=== PATIENT | female | born 1980 | race Caucasian/White ===

== ENCOUNTER → 2018-06-04 08:27 | Outpatient (CLI) | payer BC, SELFPAY ==
[2018-06-04 09:59] LABS: Absolute Lymphocyte Count 2.23 X10^3/ul (0.83-4.51); Absolute Neutrophil Count 3.5 X10^3/uL (2.0-7.7); Basophil# 0.05 X10^3/uL; Basophil% 0.8 % (0-1); Eosinophil# 0.12 X10^3/uL; Eosinophils% 1.9 % (0-5); Hematocrit 42.6 % (37-47); Hemoglobin 13.9 g/dl (12.0-15.0); Lymphocyte # 2.23 X10^3/ul (4.0); Lymphocyte % 35.3 % (19-41); Mean Corp Hgb Conc 32.6 g/gl (32-36); Mean Corpuscular Hgb 30.5 pg (27.0-32.0); Mean Corpuscular Volume 93.6 fL (81-99); Mean Platelet Vol. 11.2 fl (6.2-12.0); Monocyte# 0.41 X10^3/uL; Monocyte% 6.5 % (0-10); Neutrophil # 3.49 X10^3/uL (2.7-7.7); Neutrophil % 55.3 % (47-70); Platelet Count 306 K/mm3 (150-450); RBC Distribution Width SD 44.5 fl (35.1-43.9); Red Blood Count 4.55 M/mm3 (4.2-5.4); White Blood Count 6.3 K/mm3 (4.4-11.0)
[2018-06-04 10:01] LABS: POSITIVE COUNT NO; POSITIVE DIFFERENTIAL NO; POSITIVE MORPHOLOGY NO
[2018-06-04 10:25] LABS: ALB/GLOB Ratio 1.1 RATIO (0.9-2.4); AST(SGOT) 12 U/L (15-37); Alanine Aminotransfer ALT/SGPT 20 U/L (13-56); Albumin, Serum 3.7 g/dL (3.2-5.0); Alkaline Phosphatase 78 U/L (45-117); Anion Gap 7 (5-15); BUN 10 mg/dL (7-18); BUN/Creat Ratio 11.5 RATIO (10-20); Calcium,Total 9.3 mg/dL (8.5-10.1); Chloride 107 mmol/L (98-107); Cholesterol 136 mg/dL (200); Creatinine, Serum 0.87 mg/dL (0.55-1.02); EST Glomerular Filtration Rate 77 mL/min (>60); Est Glom Filt Rate - Afr Amer 93 mL/min (>60); Globulin 3.3 g/dL (2.2-4.2); Glucose 81 mg/dL (74-106); High Density Lipoprotein 64 mg/dL; Potassium 4.3 mmol/L (3.5-5.1); Sodium Level 141 mmol/L (136-145); Thyroid Stim Hormone (TSH) 1.32 uIU/mL (0.358-3.74); Triglycerides 63 mg/dL; Very Low Density Lipoprotein 13 mg/dL (5-40)
== END ==
PROVIDERS: Family Provider Family Medicine; PCP Family Medicine; Referring Provider Family Medicine; Visit Provider Family Medicine
DX: Z00.00 Encounter for general adult medical examination without abnormal findings (principal); Z31.69 Encounter for other general counseling and advice on procreation
CPT/HCPCS: 36415; 80053; 80061; 84443; 85025

== ENCOUNTER → 2018-06-12 14:38 | Outpatient (CLI) | payer BC, SELFPAY ==
[2018-06-11 15:33] VITALS: BMI 26.1
--- NOTE | 2018-06-12 14:44 | ECHOD_ITS ---
Reason For Study: Palpitations Procedure This was a 2D Doppler, Color Flow transthoracic echocardiogram. Exam performed in department. Left Ventricle Normal LV size. Left ventricular systolic function is normal. The estimated ejection fraction is 60 %. Normal diastology for age. No regional wall motion abnormalities noted. Right Ventricle Normal RV size. Normal systolic function. Atria Normal left atrium. Normal right atrium. Mitral Valve Mild mitral valve prolapse. Trivial mitral valve insufficiency. Tricuspid Valve Normal tricuspid valve. Mild tricuspid valve insufficiency. Pulmonary artery systolic pressure is 28 mmHg. Aortic Valve Normal aortic valve. Trisinus/trileaflet aortic valve. Pulmonic Valve Normal pulmonic valve. Great Vessels Normal aortic root. The pulmonary artery is normal size. Normal inferior vena cava. Pericardium/Pleural No pericardial effusion. MMode/2D Measurements & Calculations LVIDd: 4.4 cm IVSd: 0.86 cm Ao root diam: 2.5 cm LVIDs: 2.8 cm LVPWd: 0.76 cm RVDd: 3.8 cm FS: 37.8 % LAV(MOD-bp): 23.6 ml LA A4 area: 9.8 cm2 LA dimension(2D): 3.1 cm LAV(MOD-bp) Indexed: 12.1 ml/m2 LAV(MOD-sp2): 25.6 ml LAV(MOD-sp4): 19.2 ml RA A4 area: 6.4 cm2 Doppler Measurements & Calculations MV E max aubrey: 81.5 cm/sec Lat Peak E' Aubrey: 18.5 cm/sec Med Peak E' Aubrey: 14.2 cm/sec MV A max aubrey: 60.0 cm/sec E/E' lat: 4.4 E/E' med: 5.7 MV E/A: 1.4 Ao V2 max: 126.8 cm/sec LV V1 max: 116.9 cm/sec PA V2 max: 115.4 cm/sec Ao max P.4 mmHg LV V1 max P.5 mmHg Ao V2 mean: 90.5 cm/sec Ao mean P.6 mmHg Ao V2 VTI: 25.5 cm TR max aubrey: 246.3 cm/sec TR max P.3 mmHg Interpretation Summary Normal LV size. Left ventricular systolic function is normal. The estimated ejection fraction is 60 %. Mild mitral valve prolapse. Trivial mitral valve insufficiency. Ordering Physician: Grant Oconnor Referring Physician: Reji Rizo Performed By: Vreo Koenig RDCS, RVT
== END ==
PROVIDERS: Family Provider Family Medicine; PCP Family Medicine; Referring Provider Internal Medicine Cardiovascular Disease; Visit Provider Internal Medicine Cardiovascular Disease
DX: I34.1 Nonrheumatic mitral (valve) prolapse (principal); I49.3 Ventricular premature depolarization; R00.2 Palpitations
CPT/HCPCS: 93306

== ENCOUNTER → 2018-06-16 09:19 | Outpatient (CLI) | payer BC, SELFPAY ==
[2018-06-11 15:33] VITALS: BMI 26.1
--- NOTE | 2018-06-16 09:21 | STE_ITS ---
Reason For Study: PALPITATIONS Stress Results Protocol: Eduardo Protocol Maximum Predicted HR: 183 bpm Target HR: 156 bpm % Maximum Predicted HR: 109 % DurationHeart Rate Stage (mm:ss) (bpm) BP BASELINE 84 120/70 STAGE 1 3:00 126 126/72 STAGE 2 3:00 160 138/74 STAGE 3 3:00 200 134/60 RECOVERY 103 120/74 Stress Duration: 9:00 mm:ss Maximum Stress HR: 200 bpm Baseline Echocardiogram Findings Stress Echo Wall motion Data Resting WM Intermediate WM Stress WM Resting Wall Motion Wall Motion Stress No regional wall motion No regional wall motion abnormalities noted. abnormalities noted. Ejection Fraction 60 %. Ejection Fraction 70 %. Stress Results Normal blood pressure response to exercise. Exercise was stopped due to fatigue. Interpretation Summary Exercise stress echo. Indication preoperative clearance. Resting EKG demonstrates normal sinus rhythm with a rate of 82 bpm normal intervals are noted resting blood pressures 120/70 mmHg. The patient exercised according to regular Eduardo protocol for total duration of 9 minutes the maximum heart rate attained was 218 bpm which was 119% of maximum predicted heart rate the patient completed stage III of the Eduardo protocol. Occasional premature ventricular complexes were noted. At rest there were no ST or T wave changes no suggest ischemia peak exercise upsloping ST changes only were noted with no meet the criteria for ischemia. No clinical angina was noted. The resting blood pressure was 120/70 mmHg with a peak blood pressure 138/74 mmHg. The maximum workload attained was 10.1 metabolic equivalents. Rate pressure product was 27,200. Stress echocardiographic images. The resting echocardiogram demonstrated an ejection fraction of 60%. The patient at peak exercise demonstrated thickening of all harvey and reduction of left ventricular cavity size peaking at 70%. No wall motion of normalities were noted to suggest ischemia. Conclusion: Exercise stress echocardiogram with normal EKG and normal echocardiographic images with no evidence of ischemia. Ordering Physician: Grant Oconnor MD Referring Physician: Grant Oconnor Performed By: Ro Holland RDCS
== END ==
PROVIDERS: Family Provider Family Medicine; PCP Family Medicine; Referring Provider Internal Medicine Cardiovascular Disease; Visit Provider Internal Medicine Cardiovascular Disease
DX: I49.3 Ventricular premature depolarization (principal); I34.1 Nonrheumatic mitral (valve) prolapse; R00.2 Palpitations
CPT/HCPCS: 93017; 93350

== ENCOUNTER → 2018-06-26 07:22 | Outpatient (CLI) | payer BC, SELFPAY ==
[2018-06-11 15:33] VITALS: BMI 26.1
[2018-06-26 07:57] LABS: hCG Titer Quant., Serum 43 mIU/mL (<9 non-preg)
== END ==
PROVIDERS: Family Provider Family Medicine; PCP Family Medicine; Referring Provider Obstetrics & Gynecology Reproductive Endocrinology; Visit Provider Obstetrics & Gynecology Reproductive Endocrinology
DX: Z32.00 Encounter for pregnancy test, result unknown (principal)
CPT/HCPCS: 36415; 84702

== ENCOUNTER → 2018-06-29 | Outpatient (CLI) | payer BC, SELFPAY ==
[2018-06-11 15:33] VITALS: BMI 26.1
[2018-06-29 08:19] LABS: hCG Titer Quant., Serum 138 mIU/mL (<9 non-preg)
== END | disposition home or self-care (01) ==
LOC: LAB 07:33
PROVIDERS: Family Provider Family Medicine; PCP Family Medicine; Referring Provider Obstetrics & Gynecology Reproductive Endocrinology; Visit Provider Obstetrics & Gynecology Reproductive Endocrinology
DX: Z32.01 Encounter for pregnancy test, result positive (principal)
CPT/HCPCS: 36415; 84702

== ENCOUNTER 2019-02-12 09:35 | Inpatient (IN) | payer BC, SELFPAY ==
[2018-06-11 15:33] VITALS: BMI 26.1
[2019-02-05 14:03] VITALS: BMI 30.2
--- NOTE | 2019-02-09 17:16 | PCM.HP.BLA ---
History and Physical Date of Admission: 02/12/19 HPI: The patient is a 38 year old female presenting for pre-operative visit. She is scheduled for?, for?37 weeks, h/o vertical uterine incision for triplets on?02/12/19. ??Procedure discussed along with risks, benefits and complications. ?Other alternatives discussed for management. Consent form signed??Yes.? PAST MEDICAL HISTORY PAST MEDICAL HISTORY Diagnosis Date ? Endometriosis, site unspecified ? ? Endometriosis ? History of pre-eclampsia in prior , currently ? ? Infertility, female ? ? Kidney stones ? ? Mitral valve disorders(424.0) ? ? Mitral valve disorder/prolapse ? ? PAST SURGICAL HISTORY PAST SURGICAL HISTORY Procedure Laterality Date ? D&C ? ? ? L'SCOPE DX W/WO BRUSHINGS/WASHINGS ? ? ? Laparoscopy x2, endometriosis ? ? CURRENT MEDICATIONS Current Outpatient Medications Medication Sig Dispense Refill ? no.44-iron,car-FA-dha (PRENATE MINI) 29 mg iron-1 mg -350 mg cap Take by mouth. ? ? ? aspirin, enteric coated (ASPIRIN, ENTERIC COATED) 81 mg EC tablet Take 81 mg by mouth once daily. ? ? ? No current facility-administered medications for this visit.? ? ALLERGIES:?Morphine; Percocet [Oxycodone-Acetaminophen] ? PERSONAL HISTORY:? SOCIAL HISTORY Social History ? Tobacco Use ? Smoking status: Never Smoker ? Smokeless tobacco: Never Used Substance Use Topics ? Alcohol use: No ? Drug use: No ? FAMILY HISTORY:? FAMILY HISTORY FAMILY HISTORY Problem Relation Age of Onset ? No Known Problems Mother ? ? Heart Father ? ? Hypertension Father ? ? No Known Problems Brother ? ? No Known Problems Brother ? ? Cancer Maternal Grandmother ? ? Diabetes Maternal Grandmother ? ? Heart Maternal Grandmother ? ? Leukemia Maternal Grandfather ? ? Heart Attack Paternal Grandfather ? ? Heart disease Daughter ?Mild pulmonary stenosisstenosis ? REVIEW OF SYMPTOMS: GENERAL: denies fevers or chills ENDOCRINOLOGY: has not been on steroids Cardiology : denies palpitations or chest pain Respiratory: denies SOB or cough Hematology: denies history of prolonged bleeding or easy bruising or VTE Allergy: Denies history of personal or family history of allergy to anesthesia ? ? PHYSICAL EXAMINATION: ? VITALS:?Blood pressure 106/60, weight 205 lb (93 kg), last menstrual period 05/25/2018. ? GENERAL:??The patient is well nourished, well hydrated in no acute distress. ?, The patient is oriented to time, place, and person. NECK:?Supple. No lynphadenopathy, normal thyroid, no thyromegaly. LUNGS:?Clear to auscultation bilaterally. no wheezes, rhonchi or rales HEART:?Regular rate and rhythm, Normal heart sounds and No murmurs or gallops abd- soft,nontender, gravid, approp. for gestational age ? ? IMPRESSION:?37 weeks on 02/12/19, previous vertical uterine incision ? PLAN:???The risks/benefits/alternatives and personal involved for the planned?c/s?were reviewed with the patient. Her questions were answered to her satisfaction and she desires to proceed. ?Consent was signed. ?I reviewed with her postop instructions and expectations. ? ? I have reviewed and updated past medical and surgical history, medications and allergies? this history and physical was completed in my office on 02/09/2018.
[2019-02-12] VITALS (18 sets, daily range): BP systolic 94–119; BP diastolic 60–77; PULSE 71–91; RESP 16–18; TEMP 36.2–36.7; O2SAT 97–100; BMI 30.4
[2019-02-12] MEDS: Lactated Ringers 1,000 ML 999 ML IV (10:25)
[2019-02-12 10:27] LABS: Absolute Lymphocyte Count 1.73 X10^3/uL (0.83-4.51); Absolute Neutrophil Count 7.2 X10^3/uL (2.0-7.7); Basophil# 0.03 X10^3/uL; Basophil% 0.3 % (0-1); Eosinophil# 0.05 X10^3/uL; Eosinophils% 0.5 % (0-5); Hematocrit 32.9 % (37-47); Hemoglobin 10.8 g/dL (12.0-15.0); Lymphocyte # 1.73 X10^3/ul (4.0); Lymphocyte % 17.8 % (19-41); Mean Corp Hgb Conc 32.8 g/dL (32-36); Mean Corpuscular Hgb 31.6 pg (27.0-32.0); Mean Corpuscular Volume 96.2 fL (81-99); Mean Platelet Vol. 11.1 fl (6.2-12.0); Monocyte# 0.64 X10^3/uL; Monocyte% 6.6 % (0-10); NRBC Flagged by Analyzer 0.2 % (0-5); Neutrophil # 7.17 X10^3/uL (2.7-7.7); Platelet Count 215 K/mm3 (150-450); RBC Distribution Width SD 51.4 fl (35.1-43.9); Red Blood Count 3.42 M/mm3 (4.2-5.4); White Blood Count 9.7 K/mm3 (4.4-11.0)
[2019-02-12] MEDS: Lactated Ringers 1,000 ML 150 ML IV (11:26)
[2019-02-12] MEDS: Sodium Citrate/Citric Acid 30 ML UDC PO (11:50)
[2019-02-12] MEDS: Cefazolin 2 GM in 0.9% Normal Saline 100 ML IV (12:09)
--- NOTE | 2019-02-12 12:58 | OP.PCM_ITS ---
Delivery Classification: Scheduled Final GABINO: 03/05/19 - set by invitro embryo transfer date Gestational age: 37 Weeks and 0 Days data conversion developer: Vicky Rodney Type of Anesthesia:: Spinal Special Medications: none Implants Used: none Date of Procedure: 02/12/19 Pre-Operative Diagnosis: 37 weeks , advanced maternal age, previous vertical uterine incision Post-Operative Diagnosis: same+ adhesions of ovaries to sidewall and tubes, adhesions of tubes to ovaries and uterus, recto-sigmoid to uterus Indications for : Repeat Elective Description of Procedure: The patient was taken to the operating room. She was prepped and draped in the dorsal supine position with a leftward tilt. A Pfannenstiel skin incision was made approximately 2 cm above the symphysis pubis and carried through to underlying layer fascia with the scalpel. The fascia was incised incised in the midline and extended laterally with the Torres scissors. The fascia was dissected off the rectus muscles with blunt and sharp dissection. The rectus muscles were in the midline and the peritoneum was entered bluntly. The peritoneal incision was stretched and the bladder blade was placed. Because of some visions of the bladder to the lower uterine segment, the Metzenbaum scissors were used to create a bladder flap. Once the bladder was out of the way, the uterine incision was made. The uterine incision was made in a low transverse fashion with the scalpel and extended superiorly and inferiorly with blunt dissection. The amniotic membranes were ruptured bluntly and clear amniotic fluid returned. The 's head was brought to the incision in the flexed position and delivered without difficulty. The remainder of the was delivered with gentle traction and fundal pressure in the standard fashion. The mouth and nares were bulb suctioned. The cord was clamped and cut as the infant was stimulated. Cord clamping was delayed. The was handed off to the waiting nursing staff. The placenta was delivered with fundal massage and gentle traction in the standard fashion. The uterus was exteriorized and cleared of all clots and debris. The cervix was dilated with a ring forcep. The uterine incision was closed with #1 Vicryl in a running locked fashion. Stasis was noted. Some of the adhesions of the rectosigmoid to the midportion of the posterior uterus were taken down with blunt and sharp dissection. Bovie cauterization was done to control the bleeding over the uterus. Some Ford was then placed in this area. Because of the extensive nature of the adhesions, and there were no blind loops, the decision was made not to take any more of the adhesions down as they would likely reform. The tubes appeared somewhat clubbed. She does have a history of endometriosis and the adhesions found were consistent with this history. The incision was re-examined and was found to be hemostatic. The uterus was placed back into the peritoneal cavity and hemostasis was again confirmed. The rectus muscles were examined and any bleeding was Bovie cauterized. The parietal peritoneum and rectus muscles were closed en bloc with an 0 Vicryl running suture. The surgical teams outer gloves were then changed. The rectus fascia was examined and any bleeding was Bovie cauterized and the rectus fascia was closed with 0 PDS suture in a running standard fashion. The subcutaneous tissue was examining and any bleeding was Bovie cauterized. The subcutaneous tissue was reapproximated with 3-0 Vicryl suture. The skin was closed in a subcuticular fashion by the [employer] with me present in the labor and delivery suite. I performed the remainder of the procedure with assistance. All sponge, lap, and needle counts were correct. The patient was taken to her room for recovery in a stable condition. Amniotic Membrane Rupture Type: Artificial Amniotic Fluid Description: Clear Placenta Disposition: [facility] Specimen(s) sent to pathology: none Drain: Gaitan to straight drain Cord Entanglement: None Cord Vessel Description: 3 Vessels Esitmated Blood Loss (ml): 800 Infant Gender: Female Delayed cord clamping: Yes Antibiotic Given: Ancef 2 grams IV x1 Complications: None - Admit VTE Documentation VTE Present on Admission: No VTE Mechan Device Prophylaxis: SCD's VTE Pharm Prophylaxis ordered?: Yes
[2019-02-12] MEDS: Oxytocin 30 units/NS 500 ml 30 UNITS/500 ML IV.SOLN 167 UNITS IV (13:10)
[2019-02-12] MEDS: Lactated Ringers 1,000 ML 100 ML IV (16:26)
[2019-02-12] MEDS: 0.9% Saline Lock 10 ML Syringe IV (17:42)
[2019-02-12] MEDS: Ketorolac 30 MG/ML Syringe IV (17:42)
[2019-02-12] MEDS: Ondansetron 4 MG/2 ML Vial IV (17:42)
[2019-02-12] MEDS: Senna/Docusate Sodium 1 Tablet PO (21:53)
[2019-02-13] VITALS (10 sets, daily range): BP systolic 95–122; BP diastolic 62–77; PULSE 69–93; RESP 16–18; TEMP 36.6–37.2; O2SAT 98–100
[2019-02-13 04:56] LABS: Hemoglobin 9.3 g/dL (12.0-15.0); Mean Corp Hgb Conc 33.2 g/dL (32-36); Mean Corpuscular Hgb 31.6 pg (27.0-32.0); Mean Corpuscular Volume 95.2 fL (81-99); Mean Platelet Vol. 10.9 fl (6.2-12.0); Platelet Count 174 K/mm3 (150-450); RBC Distribution Width CV 14.7 % (11.6-14.6); RBC Distribution Width SD 50.4 fl (35.1-43.9); Red Blood Count 2.94 M/mm3 (4.2-5.4); White Blood Count 12.3 K/mm3 (4.4-11.0)
[2019-02-13] MEDS: 0.9% Saline Lock 10 ML Syringe IV ×4 (06:59→23:37)
[2019-02-13] MEDS: Enoxaparin 40 MG/0.4 ML Syringe SC (06:59)
[2019-02-13] MEDS: Ketorolac 30 MG/ML Syringe IV ×5 (06:59→23:37)
[2019-02-13] MEDS: Senna/Docusate Sodium 1 Tablet PO ×2 (12:10→22:37)
--- NOTE | 2019-02-13 12:34 | PCM.PN.OB ---
Subjective: Doing well per patient and nursing staff. Ambulating and taking PO without difficulty. Voiding and passing flatus. Pain controlled. without difficulty. Denies any increased vaginal bleeding or clots. Denies chest pain, shortness of breath, dizziness, or leg pain. Planning D/C home tomorrow. - Physical Exam Vitals/I&O's: Vital Signs Temp Pulse Resp BP Pulse Ox 98.5 F 69 18 95/74 100 02/13/19 12:16 02/13/19 12:16 02/13/19 12:16 02/13/19 12:16 02/13/19 12:16 Oxygen Delivery Method Room Air Weight: 206 lb Body Mass Index (BMI) 30.4 Intake and Output for Last 24 Hours 02/11/19 02/12/19 02/13/19 23:59 23:59 23:59 Intake Total 2372.5 / 2472.5 2600 / 2600 Output Total 200 / 1000 3250 / 3250 Balance 2172.5 / 1472.5 -650 / -650 General: Alert, Oriented x3, Cooperative HEENT: Atraumatic, Normocephalic Neck: Trachea Midline Lungs: Clear to auscultation, Normal air movement, No rhonchi, No wheeze Cardiovascular: Regular rate, Regular Rhythm, No murmurs Abdomen: Bowel Sounds Present - Fundus firm 3 below U, Soft Extremities: No edema - Abdi's negative bilaterally Psych/Mental Status: Normal Affect, Appropriate Laboratory Results 02/13/19 04:47: WBC 12.3 H, RBC 2.94 L, Hgb 9.3 L, Hct 28.0 L, MCV 95.2, MCH 31.6, MCHC 33.2, RDW Std Deviation 50.4 H, RDW Coeff of Laura 14.7 H, Plt Count 174, MPV 10.9 Current Medications Acetaminophen (Tylenol) 1,000 mg PO Q8H PRN PRN Reason: Pain Score 1-3/10 Bisacodyl (Dulcolax) 10 mg RECTAL UD PRN PRN Reason: If no BM Docusate Sodium (Colace) 100 mg PO BID [facility] Last Admin: 02/13/19 10:21 Dose: Not Given Documented by: Enoxaparin Sodium (Lovenox) 40 mg SC DAILY@0600 [facility] Last Admin: 02/13/19 06:59 Dose: 40 mg Documented by: Hydrocortisone (Hytone) 1 applic TOPICAL TID PRN PRN; Protocol PRN Reason: Discomfort Lactated Ringer's () 1,000 mls @ 100 mls/hr IV .Q10H [facility] Last Admin: 02/13/19 10:21 Dose: Not Given Documented by: Naloxone HCl 4 mg/ Dextrose 504 mls @ 0 mls/hr IV .Q0M PRN; Protocol PRN Reason: Respiratory depression Ketorolac Tromethamine (Toradol) 30 mg IV Q6 [facility] Stop: 02/14/19 12:01 Last Admin: 02/13/19 12:10 Dose: 30 mg Documented by: Methylergonovine Maleate (Methergine) 0.2 mg IM X1 PRN PRN Reason: Uterine Atony Naloxone HCl (Narcan) 0.02 mg IV Q1M PRN PRN Reason: RR <10 and pt unresponsive Naproxen (Naprosyn) 250 - 500 mg PO Q8H PRN PRN PRN Reason: Pain Score 1-3/10 Ondansetron HCl (Zofran) 4 mg IV Q4H PRN PRN PRN Reason: Nausea Last Admin: 02/12/19 17:42 Dose: 4 mg Documented by: Oxycodone HCl (Oxyir) 5 - 10 mg PO Q4H PRN PRN PRN Reason: Pain Score 4-10/10 Prochlorperazine Edisylate (Compazine Iv) 10 mg IV Q6H PRN PRN PRN Reason: NAUSEA Senna/Docusate Sodium (Senokot-S, Jasmin-Colace) 1 tablet PO BID [facility] Last Admin: 02/13/19 12:10 Dose: 1 tablet Documented by: Simethicone (Mylicon) 80 mg PO PCHS PRN PRN Reason: Indigestion/stomach pain Sodium Chloride () 5 - 15 ml IV UD PRN PRN Reason: SALINE FLUSH Last Admin: 02/13/19 12:10 Dose: 10 ml Documented by: Medical Necessity - Tobacco Use Smoking Status: Never smoker Assessment/Plan All Active Problems (Last Reviewed 02/03/19 @ 11:13 by Carey Gaitan) Palpitations (Acute) A:POD #1 Repeat Section P: 1) Routine care 2) Pain management 3) support 4) Planning D/C home tomorrow
[2019-02-13] MEDS: Acetaminophen 500 MG Tablet 1000 MG PO (19:56)
[2019-02-14 01:30] VITALS: BP 130/78; PULSE 73; RESP 16; TEMP 36.6
[2019-02-14] MEDS: Ketorolac 30 MG/ML Syringe IV ×2 (06:09→11:56)
[2019-02-14] MEDS: 0.9% Saline Lock 10 ML Syringe IV ×2 (06:10→11:57)
[2019-02-14] MEDS: Enoxaparin 40 MG/0.4 ML Syringe SC (06:10)
[2019-02-14 08:00] VITALS: BP 113/71; PULSE 75; RESP 16; TEMP 36.4
[2019-02-14] MEDS: Acetaminophen 500 MG Tablet 1000 MG PO (08:52)
--- NOTE | 2019-02-14 11:40 | PN.OBGYN_ITS ---
Subjective: Doing well per patient and nursing staff. Ambulating and taking PO without difficulty. Voiding and having bowel movement. without concerns. Denies shortness of breath, chest pain, increased vaginal bleeding, leg pain , or other concerns. Planning D/C home today. - Physical Exam Vitals/I&O's: Vital Signs Temp Pulse Resp BP Pulse Ox 97.6 F L 75 16 113/71 100 02/14/19 08:00 02/14/19 08:00 02/14/19 08:00 02/14/19 08:00 02/13/19 16:00 Oxygen Delivery Method Room Air Weight: 206 lb Body Mass Index (BMI) 30.4 Intake and Output for Last 24 Hours 02/12/19 02/13/19 02/14/19 23:59 23:59 23:59 Intake Total 2372.5 / 2472.5 2600 / 2600 Output Total 200 / 1000 3850 / 3850 Balance 2172.5 / 1472.5 -1250 / -1250 General: Alert, Oriented x3, Cooperative HEENT: Atraumatic, Normocephalic Neck: Trachea Midline Lungs: Clear to auscultation, Normal air movement, No rhonchi, No wheeze Cardiovascular: Regular rate, Regular Rhythm, No murmurs Abdomen: Bowel Sounds Present, - - Fundus firm 2 below U. Dressing dry and intact Extremities: Edema - edema +1 bilateral lower extremities. Abdi's negative bilaterally Psych/Mental Status: Normal Affect, Appropriate Current Medications Acetaminophen (Tylenol) 1,000 mg PO Q8H PRN PRN Reason: Pain Score 1-3/10 Last Admin: 02/14/19 08:52 Dose: 1,000 mg Documented by: Bisacodyl (Dulcolax) 10 mg RECTAL UD PRN PRN Reason: If no BM Docusate Sodium (Colace) 100 mg PO BID [facility] Last Admin: 02/13/19 22:33 Dose: Not Given Documented by: Enoxaparin Sodium (Lovenox) 40 mg SC DAILY@0600 [facility] Last Admin: 02/14/19 06:10 Dose: 40 mg Documented by: Hydrocortisone (Hytone) 1 applic TOPICAL TID PRN PRN; Protocol PRN Reason: Discomfort Naloxone HCl 4 mg/ Dextrose 504 mls @ 0 mls/hr IV .Q0M PRN; Protocol PRN Reason: Respiratory depression Ketorolac Tromethamine (Toradol) 30 mg IV Q6 [facility] Stop: 02/14/19 12:01 Last Admin: 02/14/19 06:09 Dose: 30 mg Documented by: Methylergonovine Maleate (Methergine) 0.2 mg IM X1 PRN PRN Reason: Uterine Atony Naloxone HCl (Narcan) 0.02 mg IV Q1M PRN PRN Reason: RR <10 and pt unresponsive Naproxen (Naprosyn) 250 - 500 mg PO Q8H PRN PRN PRN Reason: Pain Score 1-3/10 Ondansetron HCl (Zofran) 4 mg IV Q4H PRN PRN PRN Reason: Nausea Last Admin: 02/12/19 17:42 Dose: 4 mg Documented by: Oxycodone HCl (Oxyir) 5 - 10 mg PO Q4H PRN PRN PRN Reason: Pain Score 4-10/10 Prochlorperazine Edisylate (Compazine Iv) 10 mg IV Q6H PRN PRN PRN Reason: NAUSEA Senna/Docusate Sodium (Senokot-S, Jasmin-Colace) 1 tablet PO BID [facility] Last Admin: 02/13/19 22:37 Dose: 1 tablet Documented by: Simethicone (Mylicon) 80 mg PO PCHS PRN PRN Reason: Indigestion/stomach pain Sodium Chloride () 5 - 15 ml IV UD PRN PRN Reason: SALINE FLUSH Last Admin: 02/14/19 06:10 Dose: 5 ml Documented by: Medical Necessity - Tobacco Use Smoking Status: Never smoker Assessment/Plan All Active Problems (Last Reviewed 02/03/19 @ 11:13 by Carey Gaitan) Palpitations (Acute) A:POD #2 Repeat Section P: 1) Routine and postop instructions reviewed 2) Discharge home today 3) Follow up for incision check in one week and PP visit in 6 weeks
--- NOTE | 2019-02-14 11:59 | DS.PCM_ITS ---
Discharge Date and Diagnosis Date of Admission: 02/12/19 Date of Discharge: 02/14/19 - Primary Discharge Diagnosis Repeat Section - Secondary Discharge Diagnosis Chronic Problems (Last Reviewed 02/03/19 @ 11:13 by Carey Gaitan) Mitral valve prolapse (Chronic) seen on ekg (echo?) 10 years ago per pt. Hospital Course and Treatment Summary of Care Provided: The patient is a 38 year old F [for repeat section on 02/12/19. Hospital course uncomplicated. Discharge home on post operative day #2. ] - Physical Exam Vitals/I&O's: Vital Signs Temp Pulse Resp BP Pulse Ox 97.6 F L 75 16 113/71 100 02/14/19 08:00 02/14/19 08:00 02/14/19 08:00 02/14/19 08:00 02/13/19 16:00 Oxygen Delivery Method Room Air Weight: 206 lb Body Mass Index (BMI) 30.4 Intake and Output for Last 24 Hours 02/12/19 02/13/19 02/14/19 23:59 23:59 23:59 Intake Total 2372.5 / 2472.5 2600 / 2600 Output Total 200 / 1000 3850 / 3850 Balance 2172.5 / 1472.5 -1250 / -1250 Current Medications Acetaminophen (Tylenol) 1,000 mg PO Q8H PRN PRN Reason: Pain Score 1-3/10 Last Admin: 02/14/19 08:52 Dose: 1,000 mg Documented by: Bisacodyl (Dulcolax) 10 mg RECTAL UD PRN PRN Reason: If no BM Docusate Sodium (Colace) 100 mg PO BID [facility] Last Admin: 02/14/19 11:57 Dose: Not Given Documented by: Enoxaparin Sodium (Lovenox) 40 mg SC DAILY@0600 [facility] Last Admin: 02/14/19 06:10 Dose: 40 mg Documented by: Hydrocortisone (Hytone) 1 applic TOPICAL TID PRN PRN; Protocol PRN Reason: Discomfort Naloxone HCl 4 mg/ Dextrose 504 mls @ 0 mls/hr IV .Q0M PRN; Protocol PRN Reason: Respiratory depression Ketorolac Tromethamine (Toradol) 30 mg IV Q6 [facility] Stop: 02/14/19 12:01 Last Admin: 02/14/19 11:56 Dose: 30 mg Documented by: Methylergonovine Maleate (Methergine) 0.2 mg IM X1 PRN PRN Reason: Uterine Atony Naloxone HCl (Narcan) 0.02 mg IV Q1M PRN PRN Reason: RR <10 and pt unresponsive Naproxen (Naprosyn) 250 - 500 mg PO Q8H PRN PRN PRN Reason: Pain Score 1-3/10 Ondansetron HCl (Zofran) 4 mg IV Q4H PRN PRN PRN Reason: Nausea Last Admin: 02/12/19 17:42 Dose: 4 mg Documented by: Oxycodone HCl (Oxyir) 5 - 10 mg PO Q4H PRN PRN PRN Reason: Pain Score 4-10/10 Prochlorperazine Edisylate (Compazine Iv) 10 mg IV Q6H PRN PRN PRN Reason: NAUSEA Senna/Docusate Sodium (Senokot-S, Jasmin-Colace) 1 tablet PO BID [facility] Last Admin: 02/14/19 11:57 Dose: Not Given Documented by: Simethicone (Mylicon) 80 mg PO PCHS PRN PRN Reason: Indigestion/stomach pain Sodium Chloride () 5 - 15 ml IV UD PRN PRN Reason: SALINE FLUSH Last Admin: 02/14/19 11:57 Dose: 10 ml Documented by: Home Medications: Medications to take at Discharge vitamin,calcium,nwedczgq-blhq-gwnwh acid tablet 1 tab PO DAILY 06/10/18 aspirin 81 mg tablet,delayed release 81 mg PO DAILY 06/11/18 Primary Care Physician: Reji Rizo MD [Primary Care Provider] - Medical Necessity - Tobacco Use Smoking Status: Never smoker Meaningful Use Info Meaningful Use Diagnoses (Choose all that apply): None applicable
--- NOTE | 2019-02-14 12:28 | DCINST_ITS ---
Discharge Diet: No Restrictions Discharge Activity: Return to Normal Activity, May not drive while taking narcotic pain medications., May Shower May resume sexual activity in: 4-6 weeks Weight Bearing Status: Full weight bearing Lifting Restrictions: 20 pounds Additional Activity Instructions:: Nothing in the vagina for 4-6 weeks. You may return to work/school in 6 weeks. Call your doctor if your incision/area has: Continuous Slow Oozing, Sudden Increased Bleeding, Increased Pain/ Swelling, Increased Redness, Foul Smelling Discharge Call your doctor if you observe: Fever of 101 or Higher, Inability to urinate, Inability to have a bowel movement, Using more than one pad per hour, Shortness of breath, Chest pain, Increased palpitations (irregular heartbeat), Calf discomfort Suture Line Care: Avoid Pulling/Pushing, Avoid Pinching/Bending Cleanse incision/area with: Keep Dressing Clean & Dry Additional Instructions: If you experience any of the following, contact your healthcare provider. * Bleeding that soaks a pad every hour for 2 hours * Fever 100.4 or higher * Unrelieved incision or abdominal pain * Swelling, redness, discharge or bleeding from your incision or episiotomy site * Your incision begins to separate * Problems urinating (including inability to urinate or burning while urinating). * Visual changes * Severe headache * Flu-like symptoms * Pain or redness in one of both of your breasts * Pain, warmth, tenderness or swelling in your legs, especially the calf area * Frequent nausea and vomiting * Symptoms of depression or anxiety If you experience any of the following, call 911 or go to the nearest Emergency Room. * Chest pain * Problems breathing * Seizure activity * Partial or complete paralysis of a body part, slurred speech, weakness or drooping of the face, or a sudden inability to walk or hold your balance Allergies/Adverse Reactions: Allergies acetaminophen [From Percocet] Adverse Reaction (Unknown, Verified 02/05/19 14:11) Unknown morphine Adverse Reaction (Unknown, Verified 02/05/19 14:11) Unknown oxycodone [From Percocet] Adverse Reaction (Unknown, Verified 02/05/19 14:11) Unknown Medications to take at Discharge vitamin,calcium,imwlhkkm-lfzv-itend acid tablet 1 tab PO DAILY 06/10/18 traMADol [Ultram] 100 mg PO Q4H PRN PRN 7 Days #20 tablet 11/24/19 The following prescriptions were given: traMADol [Ultram] 100 mg PO Q4H PRN PRN 7 Days #20 tablet PRN Reason: Pain/Inflammation Transmission Status: Received by [facility]/pharmacy #[id number] Follow-Up: Call to make an appointment with your doctor for an incision check in 1-2 weeks. You will also need a 6 week post- follow up appointment. Test results from this visit will be discussed in further detail at your follow- up appointment, if applicable. Please Follow Up With: Vanessa Alba MD Primary Care Physician: Reji Rizo MD [Primary Care Provider] -
[2019-02-14 12:31] VITALS: BP 109/73; PULSE 70; RESP 16; TEMP 36.8
== END 2019-02-14 13:30 | disposition home or self-care (01) | DRG 786 ==
PROVIDERS: Admitting Provider Obstetrics & Gynecology; Family Provider Family Medicine; PCP Family Medicine; Referring Provider Obstetrics & Gynecology; Visit Provider Obstetrics & Gynecology
PROC: 10D00Z1 Extraction of Products of Conception, Low, Open Approach (ICD-10-PCS; CPT 59514; principal; 2019-02-12 11:45)
DX: O34.211 Maternal care for low transverse scar from previous cesarean delivery (principal); O99.42 Diseases of the circulatory system complicating childbirth; I34.1 Nonrheumatic mitral (valve) prolapse; O99.89 Other specified diseases and conditions complicating pregnancy, childbirth and the puerperium; N80.9 Endometriosis, unspecified; N73.6 Female pelvic peritoneal adhesions (postinfective); Z3A.37 37 weeks gestation of pregnancy; Z37.0 Single live birth; Z79.82 Long term (current) use of aspirin; Z87.59 Personal history of other complications of pregnancy, childbirth and the puerperium
CPT/HCPCS: 85025; 85027; 86850; 86900; 86901; 99218; 99251; J7120; A4216; G0378; G0463; J2405

== ENCOUNTER 2019-02-16 20:41 | Emergency (ER) | payer BC, SELFPAY ==
[2019-02-12 10:20] VITALS: BMI 30.4
[2019-02-16 20:41] VITALS: BP 145/80; PULSE 70; RESP 18; TEMP 36.8; O2SAT 99; BMI 30.1
--- NOTE | 2019-02-16 21:01 | ED.DCSUM_ITS ---
History of Present Illness Chief Complaint: Lower Extremity Injury Informant: Patient Onset: Yesterday Narrative: Evaluation pain and swelling lateral aspect of right knee noted yesterday. Status post elective 4 days ago with no complications. No chest pains or shortness of breath. No calf pain or medial thigh pain. Denies leaning or pressure along the area, states she does shave her legs. No fevers. No history of similar. Prior similar symptoms: No Past Medical History - Allergies and Home Meds Allergies/Adverse Reactions: Allergies acetaminophen [From Percocet] Adverse Reaction (Unknown, Verified 02/05/19 14:11) Unknown morphine Adverse Reaction (Unknown, Verified 02/05/19 14:11) Unknown oxycodone [From Percocet] Adverse Reaction (Unknown, Verified 02/05/19 14:11) Unknown Primary Care Physician: Reji Rizo MD [Primary Care Provider] - Smoking Status: Never smoker Review of Systems General: Denies: Chills, Fever, Sweats Eyes: Denies: Visual changes - bilaterally, Diplopia ENT: Denies: Rhinorrhea, Sore throat Cardiovascular: Denies: Chest pain, Palpitations Respiratory: Denies: Dyspnea, Cough, Dyspnea on exertion Gastrointestinal: Denies: Abdominal pain, Nausea, Vomiting, Diarrhea, Melena, Hematochezia Genitourinary: Denies: Dysuria, Hematuria, Frequency Musculoskeletal: Denies: Back pain, Extremity Pain Skin: Denies: Rash, Wounds Neurological: Denies: Headache, Weakness, Numbness Physical Exam Vital Signs/Narrative: Vital Signs Temp Pulse Resp BP Pulse Ox 02/16/19 20:41 98.3 F 70 18 145/80 H 99 Inital Vital Signs reviewed: Yes General: Well nourished, Well developed, No Acute Distress Head: Normocephalic, Atraumatic Eyes: Perrl, EOMI ENT: Moist mucous membranes, No rhinorrhea Neck: Supple, Nontender Cardiovascular: Regular rate, Regular rhythm, No murmurs Respiratory: No distress, CTA bilaterally, Chest nontender Abdomen: Soft, Nontender, Nondistended, Normal bowel sounds, - - Horizontal pelvic incision dressing removed clean, dry, intact. Back: Nontender, Normal Inspection Extremities: No edema Skin: Normal color, No rash, - - Right lower extremity: Posterior lateral distal femur, 2 cm area induration there is no fluctuance, no erythema or drainage. Slightly tender to palpation. No calf or medial thigh pain. Neurovascular intact distally. Neurological: Alert, Oriented x3, Cranial nerves II-XII grossly intact, Normal Strength, Normal Sensation Psychological: Normal affect, Normal Mood Diagnostic/Tx/Re-eval - Medical Decision Making Bedside ultrasound performed of the area, there is mild cobblestoning the area t here is no large area of fluid collection. Discussed likely early boil at this time, there is no indication for incision and drainage, discussed monitoring symptoms likely will be self-limiting. Strict signs and symptoms to monitor to return. This is not in the region of her deep vein for concerns for DVT, offer discussed formal ultrasound she is concerned, she is more reassured and will monitor symptoms. ED Disposition - Plan for ED Patient: Disposition: Home or Assisted Living Diagnosis: Boil Referrals: Reji Rizo MD [Primary Care Provider] - 5-7 Days Additional Instructions: Very early boil at this time, no external signs of infection. Monitor for any worsening symptoms however likely will be self-limiting. Follow-up with your doctor return if any worsening symptoms or concerns.
[2019-02-16 21:11] VITALS: BP 149/85
== END 2019-02-16 21:19 | disposition home or self-care (01) ==
PROVIDERS: Emergency Provider Emergency Medicine; Family Provider Family Medicine; PCP Family Medicine
DX: L02.425 Furuncle of right lower limb (principal)
CPT/HCPCS: 99282

== ENCOUNTER → 2020-12-04 16:32 | Outpatient (CLI) | payer BC, SELFPAY | PROVIDERS: PCP Family Medicine; Referring Provider Family Medicine; Visit Provider Family Medicine | DX: Z20.822 Contact with and (suspected) exposure to COVID-19 (principal) | CPT/HCPCS: 87635; U0005; U0003 ==

== ENCOUNTER → 2021-02-08 10:32 | Outpatient (CLI) | payer BC, SELFPAY ==
[2021-02-08 11:43] LABS: Erythrocyte Sedimentation Rate 4 mm/hr (0-30)
[2021-02-08 11:46] LABS: Absolute Lymphocyte Count 2.32 X10^3/uL (0.83-4.51); Absolute Neutrophil Count 5.4 X10^3/uL (2.0-7.7); Basophil# 0.06 X10^3/uL; Basophil% 0.7 % (0-1); Eosinophil# 0.13 X10^3/uL; Eosinophils% 1.6 % (0-5); Hematocrit 40.7 % (37-47); Hemoglobin 13.5 g/dL (12.0-15.0); Lymphocyte # 2.32 X10^3/ul (0.83-4.51); Lymphocyte % 27.8 % (19-41); Mean Corp Hgb Conc 33.2 g/dL (32-36); Mean Corpuscular Hgb 30.8 pg (27.0-32.0); Mean Corpuscular Volume 92.7 fL (81-99); Mean Platelet Vol. 11.3 fl (6.2-12.0); Monocyte# 0.42 X10^3/uL; NRBC Flagged by Analyzer 0 % (0-5); Neutrophil % 64.7 % (47-70); Platelet Count 287 K/mm3 (150-450); RBC Distribution Width CV 12.7 % (11.6-14.6); Red Blood Count 4.39 M/mm3 (4.2-5.4); White Blood Count 8.4 K/mm3 (4.4-11.0)
[2021-02-08 12:27] LABS: Anion Gap 6 (5-15); BUN 8 mg/dL (7-18); BUN/Creat Ratio 10.9 RATIO (10-20); CRP < 2.90 mg/L (0.0-3.0); Calcium,Total 9.2 mg/dL (8.5-10.1); Chloride 106 mmol/L (98-107); Creatinine, Serum 0.74 mg/dL (0.55-1.02); EST Glomerular Filtration Rate 93 mL/min (>60); Est Glom Filt Rate - Afr Amer 112 mL/min (>60); Glucose 87 mg/dL (74-106); Magnesium 2.1 mg/dL (1.6-2.6); Potassium 4.2 mmol/L (3.5-5.1); Sodium Level 139 mmol/L (136-145); T4 Free Direct 1.07 ng/dL (0.76-1.46); Thyroid Stim Hormone (TSH) 1.31 uIU/mL (0.358-3.74)
== END ==
PROVIDERS: PCP Family Medicine; Referring Provider Nurse Practitioner Family; Visit Provider Nurse Practitioner Family
DX: R00.2 Palpitations (principal); D64.9 Anemia, unspecified; U09.9 Post COVID-19 condition, unspecified
CPT/HCPCS: 36415; 80048; 83735; 84439; 84443; 85025; 85652; 86140

== ENCOUNTER → 2021-02-22 12:59 | Outpatient (CLI) | payer BC, SELFPAY | PROVIDERS: PCP Family Medicine; Referring Provider Nurse Practitioner Family; Visit Provider Nurse Practitioner Family | DX: R00.2 Palpitations (principal) | CPT/HCPCS: 93225; 93226 ==

== ENCOUNTER → 2021-03-02 09:32 | Outpatient (CLI) | payer BC, SELFPAY ==
--- NOTE | 2021-03-02 09:34 | US_ITS ---
STUDY: ABDOMINAL ULTRASOUND - RIGHT UPPER QUADRANT REASON FOR VISIT: Female, 40 years old RUQ ABD PAIN TECHNIQUE: Ultrasound evaluation of the right upper quadrant was performed with real-time and static qureshi-scale imaging. TECHNICAL QUALITY: Adequate. COMPARISON: None. FINDINGS: Liver: The liver measures 17.1 cm. There is normal echogenicity of the liver. The bile ducts are within normal limits. There is hepatic color flow. The direction of portal flow is hepatopetal. There is no demonstrated mass lesion. Gallbladder: Normal distended gallbladder. The gallbladder wall measures 3 mm. There is a negative sonographic Parker''s sign. There is no pericholecystic fluid. There are no gallstones. Common Bile Duct (C.B.D.): The common bile duct measures 3 mm. Pancreas: Normal size of the head, body and tail of the pancreas. There is normal echogenicity of the pancreas. There is no demonstrated pancreatic mass or cyst. Right Kidney: Normal size of the right kidney. The right kidney measures 11.5 cm x 3.9 cm x 3.7 cm. Normal renal cortex. The right cortex measures 1.1 cm. There is no demonstrated renal mass or cyst. There is no right hydronephrosis. US/Abdomen Limited IMPRESSION: Normal right upper quadrant ultrasound examination. Electronically Signed: Jovan Pan MD at 10:31 EST , Service support ,
== END ==
PROVIDERS: PCP Family Medicine; Referring Provider Family Medicine; Visit Provider Family Medicine
DX: R10.11 Right upper quadrant pain (principal)
CPT/HCPCS: 76705

== ENCOUNTER → 2022-08-07 | Outpatient (CLI) | payer BC, SELFPAY ==
[2022-08-07 12:35] LABS: Absolute Lymphocyte Count 2.83 X10^3/uL (0.83-4.51); Absolute Neutrophil Count 5.1 X10^3/uL (2.0-7.7); Basophil# 0.07 X10^3/uL; Basophil% 0.8 % (0-1); Eosinophil# 0.14 X10^3/uL; Eosinophils% 1.6 % (0-5); Hematocrit 41.3 % (37-47); Hemoglobin 13.4 g/dL (12.0-15.0); Lymphocyte # 2.83 X10^3/ul (0.83-4.51); Lymphocyte % 32.3 % (19-41); Mean Corp Hgb Conc 32.4 g/dL (32-36); Mean Corpuscular Hgb 30.9 pg (27.0-32.0); Mean Corpuscular Volume 95.2 fL (81-99); Mean Platelet Vol. 11.5 fl (6.2-12.0); Monocyte% 6.9 % (0-10); NRBC Flagged by Analyzer 0 % (0-5); Neutrophil # 5.09 X10^3/uL (2.7-7.7); Neutrophil % 58.2 % (47-70); Platelet Count 314 K/mm3 (150-450); RBC Distribution Width CV 12.8 % (11.6-14.6); RBC Distribution Width SD 44.6 fl (35.1-43.9); Red Blood Count 4.34 M/mm3 (4.2-5.4); White Blood Count 8.8 K/mm3 (4.4-11.0)
[2022-08-07 15:43] LABS: Vitamin D,25 Hydroxy 29.4 ng/mL
[2022-08-07 15:59] LABS: Ferritin 13 ng/mL (8-252); Thyroid Stim Hormone (TSH) 1.37 uIU/mL (0.358-3.74)
[2022-08-11 15:07] LABS: Thyroid Peroxidase AB 12 IU/mL (0-34); Zinc, Plasma or Serum 70 ug/dL (44-115)
[2022-08-12 15:08] LABS: Vitamin D 1,25-Dihydroxy 49.3 pg/mL (24.8-81.5)
== END | disposition home or self-care (01) ==
PROVIDERS: PCP Family Medicine; Referring Provider Dermatology; Visit Provider Dermatology
DX: L64.8 Other androgenic alopecia (principal); L21.8 Other seborrheic dermatitis; L71.8 Other rosacea
CPT/HCPCS: 36415; 82306; 82652; 82728; 84443; 84630; 85025; 86376

== ENCOUNTER → 2023-11-12 | Outpatient (CLI) | payer BC, SELFPAY ==
[2023-11-12 12:40] LABS: Ferritin 20 ng/mL (8-252)
[2023-11-12 12:41] LABS: Vitamin D,25 Hydroxy 40.8 ng/mL
[2023-11-14 12:09] LABS: Vitamin D 1,25-Dihydroxy 48.4 pg/mL (24.8-81.5)
== END | disposition home or self-care (01) ==
LOC: MTLAB 09:21
PROVIDERS: PCP Family Medicine; Referring Provider Dermatology; Visit Provider Dermatology
DX: L21.8 Other seborrheic dermatitis (principal); L02.821 Furuncle of head [any part, except face]; L64.8 Other androgenic alopecia; L71.8 Other rosacea; L90.5 Scar conditions and fibrosis of skin; B35.1 Tinea unguium; L30.0 Nummular dermatitis
CPT/HCPCS: 36415; 82306; 82652; 82728